=== PATIENT | female | born 1985 | race Asian ===

== ENCOUNTER 2019-08-01 07:33 | Emergency (ER) | payer MEDICAID ==
[~2019-08-01] VITALS: Ht 160 cm; Wt 48.1 kg
[2019-08-01 08:20] LABS: *BILIRUBIN,URIN NEGATIVE (NEGATIVE); *CLARITY,URINE CLEAR (CLEAR); *COLOR,URINE YELLOW (YELLOW); *KETONES,URINE NEGATIVE (NEGATIVE); *UROBILINOGEN,URINE 0.2 E.U./dl (NORMAL); LEUKOCYTE ESTERASE ,URINE NEGATIVE (NEGATIVE); NITRITE, URINE NEGATIVE (NEGATIVE); UGLUCOSE NEGATIVE (NEGATIVE)
[2019-08-01 08:21] LABS: *BLOOD, URINE TRACE (NEGATIVE); *URINE HCG, QUAL NEGATIVE (NEGATIVE)
[2019-08-01 08:51] LABS: WBC,URINE 0-3 /HPF (0-3)
[2019-08-01 08:52] LABS: SQUAMOUS EPITHELIAL CELL,UR FEW /HPF (NONE SEEN)
--- NOTE | 2019-08-01 09:04 | NUR ---
Patient discharged to home in stable conditon. Written and verbal after care instructions given to patient and spouse. Patient and spouse verbalized understanding of instructions.
== END 2019-08-01 09:05 | disposition home or self-care (01) ==
LOC: ER 07:33
DX: R33.9 Retention of urine, unspecified (principal)
CPT/HCPCS: 51702; 84703; 87086; A4663